=== PATIENT | female | born 2000 | race Two or more races ===

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

== ENCOUNTER 2022-12-22 08:05 | Emergency (ER) | payer MEDICAID ==
[~2022-12-22] VITALS: Ht 162.6 cm; Wt 60.6 kg
[2022-12-22] MEDS ORDERED: PROM1SOL4 PO (08:47)
[2022-12-22] MEDS ORDERED: BENZ100C97 PO (08:47)
[2022-12-22 08:55] VITALS: BP 122/76; PULSE 105; RESP 18; TEMP 98.6; O2SAT 99
== END 2022-12-22 08:48 | disposition home or self-care (01) ==
LOC: ER 08:05
DX: J06.9 Acute upper respiratory infection, unspecified (principal); K21.9 Gastro-esophageal reflux disease without esophagitis